=== PATIENT | male | born 1980 | race Caucasian/White ===

== ENCOUNTER 2018-07-24 20:21 | Emergency (ER) | payer OTHER ==
[~2018-07-24] VITALS: Ht 182.9 cm; Wt 84.0 kg
[2018-07-24 21:15] VITALS: BP 144/93
== END 2018-07-24 21:15 | disposition home or self-care (01) | DRG 605 ==
LOC: ED 20:21
PROC: 0HQEXZZ Repair Left Lower Arm Skin, External Approach (ICD-10-PCS; principal; 2018-07-24)
DX: S51.812A Laceration without foreign body of left forearm, initial encounter (principal); X78.8XXA Intentional self-harm by other sharp object, initial encounter; Y92.149 Unspecified place in prison as the place of occurrence of the external cause